=== PATIENT | female | born 1980 | race African-American/Black ===

== ENCOUNTER 2017-11-07 11:23 | Outpatient (CLI) | payer OTHER ==
[2017-11-07 14:22] LABS: Hemoglobin 7.4 g/dL (12.0-16.0); Mean Corpuscular HGB CONC 29.6 g/dL (32.0-36.0); Mean Corpuscular Hemoglobin 19.7 pg (27.0-31.0); Mean Corpuscular Volume 66.6 fl (81.0-99.0); Mean Platelet Volume 11.7 fL (7.4-10.4); Platelet Count 283 thou/uL (130-400); RBC Distribution Width 19.2 % (11.5-14.5); Red Blood Cell (RBC) Count 3.77 mill/uL (4.20-5.40); White Blood Cell (WBC) Count 3.4 thou/uL (4.8-10.8)
[2017-11-07 14:46] LABS: BHCG - Serum Negative (NEGATIVE); Pregs Control Background? CLEAR/WHITE (CLR/WHITE); Pregs Control Bar Appear? YES (CONTROL BAR)
== END 2017-11-07 11:24 | disposition home or self-care (01) ==
LOC: LABBT 11:23
PROVIDERS: ATTEND Student in an Organized Health Care Education/Training Program
DX: Z01.812 Encounter for preprocedural laboratory examination (principal); N92.0 Excessive and frequent menstruation with regular cycle; N92.6 Irregular menstruation, unspecified; D64.9 Anemia, unspecified
CPT/HCPCS: 80053; 80076; 84703; 85027; 86850; 86900; 86901

== ENCOUNTER 2017-11-07 13:00 | Inpatient (IN) | payer OTHER ==
[2017-11-07 11:58] VITALS: BMI 39.6
[2017-11-07 14:56] LABS: ALT (SGPT) 91 U/L (8-55); AST (SGOT) 85 U/L (5-34); Alkaline Phosphatase 117 U/L (40-150); Anion Gap 12 mmol/L (10-20); BUN (Urea Nitrogen) 7 mg/dL (7.0-18.7); Bilirubin, Direct 0.2 mg/dL (0.1-0.3); Bilirubin, Total 0.5 mg/dL (0.2-1.2); Calc. Creatinine Clearance 0 mL/min (70-130); Calcium 9.4 mg/dL (7.8-10.44); Carbon Dioxide 24 mmol/L (22-29); Chloride 104 mmol/L (98-107); Estimated GFR-MDRD Greater than 90; Globulin 4.9 g/dL (2.4-3.5); Glucose 71 mg/dL (70-105); Potassium 3.6 mmol/L (3.5-5.1); Protein, Total 8.9 g/dL (6.0-8.3); Sodium 136 mmol/L (136-145)
--- NOTE | 2017-11-11 00:21 | HP ---
DATE OF ADMISSION: 11/11/2017 CHIEF COMPLAINT: Menometrorrhagia to anemia, pelvic pain and low-grade cervical dysplasia. She has typically monthly menses; however, occasionally will be twice per month, about 10 days long. Reports heavy days most of the cycle with clots the size of an oranges soaking through large pads an d tampons every hour. She has to leave work on multiple occasions and feels very weak and out of nurys ath. She has been on oral iron therapy but has not improved her hemoglobin, has also tried Lysteda, but that did not improve the bleeding. She has never had a blood transfusion and has an ultrasound t hat shows the uterus measuring 10.62 x 4.9 posterior fibroid measuring 2.72 x 2.33. Right and left o vary were normal, there was a simple left ovarian cyst at the time of her ultrasound. The patient de sires to undergo definitive management with hysterectomy. She also has a past medical history for steve pus and autoimmune hepatitis for which she is on Benlysta, Imuran and Plaquenil. She has discontinue d her Benlysta. This is a monthly infusion she gets every 4 weeks, the last infusion was 10/18/2017 . CURRENT MEDICATIONS: Benlysta 120 mg IV q.4 weeks, ferrous sulfate 325 mg p.o. t.i.d., Imuran 50 mg p.o. daily, Plaquenil 200 mg p.o. daily, vitamin D3 of 1000 units p.o. daily. PAST MEDICAL HISTORY: Lupus, autoimmune hepatitis. GYNECOLOGIC HISTORY: CIN1 on colpo biopsies recently, HPV positive. OB HISTORY: , x3, ectopic x1, salpingectomy, largest baby 7-1/2 pounds. PAST SURGICAL HISTORY: Cholecystectomy and tubal ligation. SOCIAL HISTORY: Smokes 5 cigarettes per day. Negative for alcohol or drug use. ALLERGIES: No known drug allergies. FAMILY HISTORY: Maternal history of ovarian and colon cancer at age 53. Patient states her mother h as not had genetic testing. Neither has the patient. PHYSICAL EXAMINATION: VITAL SIGNS: Blood pressure 128/74, weight 246 pounds, BMI is 40.9, pulse is 84, respirations 18. GENERAL: No acute distress. CARDIAC: Regular rate and rhythm. LUNGS: Clear to auscultation bilaterally. ABDOMEN: Soft, nontender, nondistended. EXTREMITIES: No edema, cyanosis or clubbing. PELVIC: Deferred to the OR. ASSESSMENT AND PLAN: This is a 37-year-old G4, P3 with uterine fibroids, menometrorrhagia to anemia, desiring definitive management with hysterectomy since unresponsive to medical management and degree of patient's anemia. I have discussed risk of surgery to include bleeding, infection, damage to yadira rounding structures including bowel, bladder, blood vessels, ureters, nerves and risk of transfusion during her surgery as well as conversion to open procedure. I have also discussed bilateral salpingo -oophorectomy at length with this patient as she reports her mom's history of ovarian cancer. Hiro r, this may actually be a colon primary that extended to the ovary and the patient is unsure of this. I have advised the patient that even with a maternal history of ovarian cancer secondary to her age , I would not recommend prophylactic bilateral salpingo-oophorectomy without genetic screening and if bilateral salpingo-oophorectomy was recommended due to a BRCA carrier status, would recommend this i n her 40s at a later date. If the ovaries are normal appearing at the time of surgery, we will plan ovarian retention. The patient understands and agrees with this. Will perform risk-reducing salping ectomy. The patient will follow up with me in 2 weeks postoperative time. We will type and cross pr ior to surgery secondary to hemoglobin of 7.4.
[2017-11-11] MEDS ORDERED: CEFAZOLIN/Water 2 GM/20 ML SYRINGE ONE (08:05)
[2017-11-11] MEDS ORDERED: Midazolam HCl 2 mg/2 ml Vial ONE (08:05)
[2017-11-11] MEDS ORDERED: Midazolam HCl 2 mg/2 ml Vial IVP SCH (08:15)
[2017-11-11] MEDS ORDERED: Hydrocortisone Sod Succ/PF 100 mg/2 ml Vial IVP SCH (08:15)
[2017-11-11] MEDS ORDERED: Bupivacaine PF 0.5% 30 ML VIAL ONE (08:51)
[2017-11-11] MEDS ORDERED: Lidocaine 2% w/Epinephrine 1:200K 20 ML VIAL ONE (08:51)
[2017-11-11] MEDS ORDERED: Fentanyl 100 MCG/2 ML VIAL ONE (09:12)
[2017-11-11] MEDS ORDERED: Morphine 10 MG/ML VIAL ONE (09:12)
[2017-11-11] MEDS ORDERED: Ondansetron HCl/PF 4 MG/2 ML Vial IVP PRN (10:48)
[2017-11-11] MEDS ORDERED: Promethazine HCl 25 MG/ML VIAL SLOW IVP PRN (10:48)
[2017-11-11] MEDS ORDERED: Promethazine HCl 25 MG/ML VIAL IM PRN ×2 (10:48→13:55)
[2017-11-11] MEDS ORDERED: Ondansetron HCl/PF 4 MG/2 ML Vial ONE (12:20)
[2017-11-11 12:32] LABS: Hemoglobin 7.5 g/dL (12.0-16.0)
[2017-11-11] MEDS ORDERED: HYDROcodone/Acetaminophen 5/325 mg Tablet PO PRN ×2 (13:55)
[2017-11-11] MEDS ORDERED: Ketorolac Tromethamine 30 MG/ML VIAL IVP PRN (13:55)
[2017-11-11] MEDS ORDERED: Simethicone Chewable 80 MG TAB PO PRN (13:55)
[2017-11-11] MEDS ORDERED: diphenhydrAMINE 25 MG CAP PO PRN (13:55)
[2017-11-11] MEDS ORDERED: Morphine 5 MG/ML SYRINGE SLOW IVP PRN (13:55)
[2017-11-11] MEDS ORDERED: Zolpidem Tartrate 5 MG TAB PO PRN (13:55)
[2017-11-11] MEDS ORDERED: Bisacodyl 10 MG SUPP PR PRN (13:55)
--- NOTE | 2017-11-11 14:09 | OP ---
DATE OF OPERATION: 11/11/2017 PREOPERATIVE DIAGNOSES: 1. Uterine fibroids. 2. Menometrorrhagia. 3. Anemia. POSTOPERATIVE DIAGNOSES: 1. Uterine fibroids. 2. Menometrorrhagia. 3. Anemia. PROCEDURE: Robotic assisted total laparoscopic hysterectomy, right salpingectomy, cystoscopy. ANESTHESIA: General endotracheal. ATTENDING SURGEON: Marie Marr M.D. EUCLID OPERATOR: Phillip Ghosh M.D. ESTIMATED BLOOD LOSS: 50 mL. INTRAVENOUS FLUIDS: 800 mL crystalloid. URINE OUTPUT: 300 mL of clear urine. PATHOLOGY: Uterus, cervix, and right fallopian tube. COMPLICATIONS: None. DRAINS: Zaman catheter. FINDINGS: Mobile 12-week sized uterus sounded to 12 cm, multiple uterine fibroids, right fallopian t ube with cystic changes, left fallopian tube was absent. The ovaries were normal bilaterally. The l eft with a corpus luteum cyst. There were some filmy adhesions of the ovaries to the pelvic sidewall s and some adhesions from the patient's prior left salpingectomy of the omentum to the full fallopian tube stump. On cystoscopic survey the bladder mucosa was smooth without lesions or masses. There w ere no bladder defects noted. The urethra was normal appearing and there was bilateral vigorous uret eral efflux noted. OPERATIVE TECHNIQUE: The patient was taken to the operating room where general anesthesia was obtain ed without difficulty. The patient was prepped and draped in sterile fashion in dorsal lithotomy pos ition. After a timeout was performed, the patient was given Ancef 2 grams. A Zaman catheter was yoseph darren in the bladder. A speculum was placed in the vagina. Anterior lip of the cervix was grasped wit h a single tooth tenaculum and the uterus sounded to 12 cm. The cervix was progressively dilated wit h the Josh dilators and the DEANNA manipulator was assembled with a 12 cm tip and a 4 cm colpotomizer r ing. The manipulator tip was inserted to the uterine fundus. Balloon was inflated and instruments r emoved out of the vagina. The colpotomizer ring was advanced to fit snuggly around the cervix and th e vaginal occluder balloon was inflated, legs were placed in low lithotomy, attention was turned to t he abdomen. Approximately 2 fingerbreadths above the umbilicus was infiltrated with a mixture of 2% lidocaine wit h epinephrine and 0.5% plain Marcaine and a 12 mm skin incision was made. The Veress needle was pass ed into the abdomen noting an opening pressure of 0 mmHg. Pneumoperitoneum was obtained without diffi culty. The Veress needle was then removed and the 12 mm trocar was placed into the abdomen and confi rmed placement with the robotic camera. was obtained. The left and right 8 mm robotic trocars were placed under direct visualization after infiltrating with the anesthetic mixture, right upper q uadrant, an 11 mm drug safety assistant port was then placed under direct visualization after infiltrating with t he anesthetic mixture. The robot was then docked. The right robotic arm contained the monopolar sci ssors. The left robotic arm contained a fenestrated bipolar. The right fallopian tube was grasped a nd elevated. The mesosalpinx was sequentially cauterized and transected with the fenestrated and mon opolar scissors respectively and the fallopian tube was then transected across and removed out of the abdomen. The utero-ovarian on the right was cauterized multiple times and transected in the middle, taken down to the round ligament that was cauterized and transected ensuring hemostasis. The anteri or leaf of the broad ligament was opened up and incised down to the level of the bladder flap. The p osterior leaf of broad ligament was also dropped down. This allowed for skeletonization laterally of the vessels and dropping down of the retroperitoneal fibers with the scissors. The bladder flap was then further developed ensuring a clear window with the fenestrated tenting up and incising with the scissors. The pubocervical fascia was then dissected bluntly distally and hemostasis was achieved w ith the fenestrated. The left side was then examined and left fallopian tube was noted to be absent from her prior salpingectomy. There were adhesions of the omentum to the left fallopian tube stump a nd these were taken down carefully with the monopolar scissors on cautery. There was also a spot of endometriosis on the left pelvic sidewall that was cauterized with the monopolar scissors. There wer e some filmy adhesions of the ovary to the pelvic sidewall that were taken down with scissors as well . The utero-ovarian was then cauterized multiple times including the fallopian tube stump and then t ransected with the scissors. The round ligament was cauterized in the mid portion and transected wit h the scissors and the anterior leaf of the broad ligament was incised down to the level of the contr alateral incision. The posterior leaf of the broad ligament was dropped down to the level of the cornelius rosacral and the retroperitoneum was dissected down off of the uterine vessels and the vessels were t hen cauterized after adequate skeletonization had been performed with the fenestrated. The right cornelius rine pedicle was then again examined and cautery was performed of these vessels once again. These ve ssels were then incised and on the colpotomizer ring and colpotomy was carried around anteriorly and once the left apex was met the fenestrated was flipped underneath that apex to cauterize and provide additional hemostasis. Posterior colpotomy completely transected the uterus. The uterus was removed into the vagina. The vaginal cuff was irrigated and hemostasis was achieved with the fenestrated, s cissors were traded out for the needle bellman driver and a Stratafix 2-0 barbed suture was passed into the a bdomen and the cuff was closed in a running fashion ensuring incorporation of the vaginal mucosa and posterior peritoneum in each bite. Once adequate closure was performed and the needle was cut and re moved out of the abdomen. Previously upon incising on the left side of the uterine vessels there was a questionable structure that most likely was uterine artery; however, could not definitively rule o ut whether this was a ureter; however, this was high and above the colpotomizer ring so this was not likely secondary to this concern. A cystoscope was called for. Copious irrigation of the pelvis was then performed and low pressure check was performed. Hemostasis was noted to be excellent. All ins truments were removed from the abdomen. The 70 degree cystoscope was then assembled and the robot wa s undocked. The Zaman catheter was removed and cystoscope was inserted into the bladder and noted no injury to the bladder, no suture material. No lesions or masses and the ureters effluxed bilaterall y in a very short period of time. The cystoscope was then removed and the Zaman catheter was replace d. The attention was turned to the abdomen then and the fascia of the umbilical port was closed with 0 Vicryl in a [id number] fashion. Skin was closed with 4-0 Monocryl in subcuticular fashion an d Dermabond was applied. The cuff was then checked and noted to be hemostatic with excellent closure . All instruments were removed out of the vagina. The patient tolerated the procedure well. Sponge , lap, and needle counts were correct x2. The patient was taken to recovery room in stable condition .
[2017-11-11] MEDS ORDERED: PHENYLEPHRINE-NS 100 MCG/ML 10 ML SYRINGE ONE (15:10)
[2017-11-11] MEDS ORDERED: Lidocaine 1% PF 5 ML VIAL ONE (15:10)
[2017-11-11] MEDS ORDERED: Glycopyrrolate 0.2 MG/ML 5 ML SYRINGE ONE (15:10)
[2017-11-11] MEDS ORDERED: PROPOFOL 200 MG/20 ML VIAL ONE (15:10)
[2017-11-11] MEDS: Lactated Ringer's 1,000 ML IV SCH ×3 (15:38→23:34)
[2017-11-11] MEDS: Ondansetron HCl/PF 4 MG/2 ML Vial IVP PRN ×2 (16:24→21:57)
[2017-11-11] MEDS: Acetaminophen 1,000 MG in Premix Bag 1 BAG IVPB SCH ×2 (17:22→23:34)
[2017-11-11] MEDS: Docusate Calcium (SURFAK) 240 MG CAP PO SCH (20:16)
[2017-11-12] MEDS: Lactated Ringer's 1,000 ML IV SCH (04:14)
[2017-11-12 06:01] LABS: Hemoglobin 6.7 g/dL (12.0-16.0); Mean Corpuscular HGB CONC 29.5 g/dL (32.0-36.0); Mean Corpuscular Hemoglobin 19.5 pg (27.0-31.0); Mean Corpuscular Volume 66.1 fl (81.0-99.0); Mean Platelet Volume 5.5 fL (7.4-10.4); Platelet Count 173 thou/uL (130-400); RBC Distribution Width 19.8 % (11.5-14.5); Red Blood Cell (RBC) Count 3.44 mill/uL (4.20-5.40); White Blood Cell (WBC) Count 5.4 thou/uL (4.8-10.8)
[2017-11-12] MEDS: Acetaminophen 1,000 MG in Premix Bag 1 BAG IVPB SCH (06:25)
[2017-11-12] MEDS ORDERED: Ibuprofen 600 MG TAB PO SCH ×2 (08:09→14:00)
[2017-11-12] MEDS ORDERED: azaTHIOprine 50 MG TAB PO SCH (09:00)
[2017-11-12] MEDS ORDERED: Fluconazole 100 MG TAB PO SCH (09:00)
[2017-11-12] MEDS ORDERED: Hydroxychloroquine Sulfate 200 MG TAB PO SCH (09:00)
[2017-11-12] MEDS: Docusate Calcium (SURFAK) 240 MG CAP PO SCH (10:13)
[2017-11-12 11:06] VITALS: BP 132/85; TEMP 99.2
--- NOTE | 2017-11-12 11:17 | PQF ---
CLINICAL DOCUMENTATION IMPROVEMENT CLARIFICATION FORM: ICD-10 Updated PLEASE DO AN ADDENDUM TO THE PROGRESS NOTE WITH ANY DOCUMENTATION UPDATES OR ADDITIONS AND CARRY THROUGH TO DC SUMMARY. THANK YOU. DATE: 11/12/17 ATTN: DR. REDMOND Please exercise your independent, professional judgment in responding to the clarification form. Clinical indicators are provided on the bottom of this form for your review Please check appropriate box(s): [ ] Acute blood loss anemia [ ] Post-op anemia related to acute blood loss [ X] Anemia: [ ] Aplastic [ ] Nutritional [ ] Drug induced (specify) __ [ ] Hemolytic [ ] Hereditary [ ] Acquired [ ] Autoimmune [ ] Non-autoimmune [ ] Enzyme disorder [ X] Chronic Anemia: [ ]X Blood loss [ ] Hemolytic [ ] Simple [ ] Due to Vitamin B12 Deficiency [ X ] Other ___Heavy menses [ ] Anemia of Chronic Disease (please specify) [ ] Anemia due to Neoplasm: [ ] Primary [ ] Secondary [ ] Anemia due to (please choose): [ ] Due to Chemotherapy [ ] Due to Radiotherapy [ ] Due to Immunotherapy [ ] Other diagnosis [ ] Unable to determine In addition, please specify: Present on Admission (POA): [x] Yes [ ] No [ ] Unable to determine For continuity of documentation, please document condition throughout progress notes and discharge summary. Thank You. CLINICAL INDICATORS - SIGNS / SYMPTOMS / LABS H&P: "ANEMIA" HGN 7.5 / 6.7 RISKS: UTERINE FIBROIDS HEAVY MENSES TREATMENT: BLOOD TRANSFUSION (This form is maintained as a part of the permanent medical record) 2014 [employer], [employer]. All Rights Reserved [email or web address] Office: [phone] [email or web address]
[2017-11-12 13:09] LABS: Hemoglobin 7.7 g/dL (12.0-16.0)
[2017-11-12] MEDS ORDERED: HYDROcodone/Acetaminophen 5/325 mg Tablet PO PRN ×2 (22:00)
[2017-11-12] MEDS ORDERED: Acetaminophen 325 MG TAB PO PRN (22:00)
--- NOTE | 2017-11-13 02:41 | PRG ---
DATE OF VISIT: 11/12/2017 TIME OF VISIT: 07:30 SUBJECTIVE: Patient reports pain is controlled currently rated at 7/10 and is about to take some p.o . ibuprofen. She has no nausea or vomiting. She has not eaten yet; however, has an appetite. Denie s flatus. She has ambulated and voided without difficulty. She denies any dizziness or shortness of breath. She does feel fatigued and slightly weak. OBJECTIVE: VITAL SIGNS: Pulse is 73, respirations 16, temperature 98.3, blood pressure 116/62. I and O is 905 intake, 2100 output. GENERAL: No acute distress. CARDIAC: Regular rate and rhythm. LUNGS: Clear to auscultation bilaterally. ABDOMEN: Soft, appropriately tender. Bowel sounds are positive. Incision is clean, dry, and intact . EXTREMITIES: No edema, cyanosis, or clubbing. ASSESSMENT AND PLAN: This is a 37-year-old status post robotic assisted total laparoscopic hysterect parviz, vital signs stable. Patient is afebrile. Hemoglobin this morning dropped from 7.4 to 6.7. We will dispose for transfusion of 1 unit for critical anemia. This is secondary to chronic blood loss with menorrhagia, which will resolve after her hysterectomy. We will dispose for H&H following trans fusion and likely discharge home later today. She will continue with p.o. pain meds and continue her home meds.
== END 2017-11-12 13:40 | disposition home or self-care (01) | DRG 743 ==
LOC: SURG A 11-11 07:18 → 3SE 11-11 12:37 → 3SW 11-11 12:58
PROVIDERS: ADMIT Student in an Organized Health Care Education/Training Program; ATTEND Student in an Organized Health Care Education/Training Program
PROC: 0UT9FZZ Resection of Uterus, Via Natural or Artificial Opening With Percutaneous Endoscopic Assistance (ICD-10-PCS; principal; 2017-11-11)
PROC: 0UT5FZZ Resection of Right Fallopian Tube, Via Natural or Artificial Opening With Percutaneous Endoscopic Assistance (ICD-10-PCS; 2017-11-11)
PROC: 8E0W4CZ Robotic Assisted Procedure of Trunk Region, Percutaneous Endoscopic Approach (ICD-10-PCS; 2017-11-11)
PROC: 0TJB8ZZ Inspection of Bladder, Via Natural or Artificial Opening Endoscopic (ICD-10-PCS; 2017-11-11)
PROC: 30233N1 Transfusion of Nonautologous Red Blood Cells into Peripheral Vein, Percutaneous Approach (ICD-10-PCS; 2017-11-12)
DX: N92.0 Excessive and frequent menstruation with regular cycle (principal); M32.9 Systemic lupus erythematosus, unspecified; K75.4 Autoimmune hepatitis; D25.2 Subserosal leiomyoma of uterus; D50.0 Iron deficiency anemia secondary to blood loss (chronic); F17.210 Nicotine dependence, cigarettes, uncomplicated; Z23 Encounter for immunization; Z98.51 Tubal ligation status; Z80.41 Family history of malignant neoplasm of ovary
CPT/HCPCS: 36415; 36430; 80053; 80076; 85014; 85018; 85027; 86850; 86900; 86901; 88307; 90471; 90732; J2270; A4216; G0009; J0131; J1720; J1885; J2001; J2250; J2405; J2704; J3010; J7500; P9016; S0020

== ENCOUNTER 2020-04-20 11:11 | Outpatient (CLI) | payer OTHER ==
--- NOTE | 2020-04-20 11:49 | RAD ---
EXAM: Abdomen 2 views: HISTORY: Constipation COMPARISON: 05/23/2014 FINDINGS: There is gas and fecal material in the colon. No bowel obstruction, abnormal calculus, free air, or other acute process. IMPRESSION: No significant acute process in the abdomen and pelvis.
== END 2020-04-20 11:12 | disposition home or self-care (01) ==
LOC: BICRAD 11:11
PROVIDERS: ATTEND Internal Medicine Gastroenterology
DX: K59.00 Constipation, unspecified (principal)
CPT/HCPCS: 74019

== ENCOUNTER 2020-04-28 07:15 | Outpatient (CLI) | payer OTHER ==
--- NOTE | 2020-04-28 07:55 | ULT ---
Hepatic sonogram with duplex evaluation HISTORY: Abnormal liver function tests. FINDINGS gallbladder surgically absent. Common duct is 0.5 cm. Liver has normal appearance without focal mass or intrahepatic biliary dilatation. No free fluid. Spleen measures up to 10.9 cm with a normal appearance. Good color and spectral Doppler flow within the hepatic and splenic arteries. Portal venous flow is t owards the liver. Hepatic venous flow is towards the IVC. IMPRESSION : Status post cholecystectomy. No abnormalities are demonstrated. No sonographic evidence of portal venous hypertension.:
== END 2020-04-28 07:16 | disposition home or self-care (01) ==
LOC: BICULT 07:15
PROVIDERS: ATTEND Internal Medicine Gastroenterology
DX: R94.5 Abnormal results of liver function studies (principal); K59.09 Other constipation; Z90.49 Acquired absence of other specified parts of digestive tract
CPT/HCPCS: 76705